=== PATIENT | female | born 1960 | race Caucasian/White ===

== ENCOUNTER 2018-01-13 18:05 | Emergency (ER) | payer BC ==
[2018-01-13] MEDS ORDERED: METOCLOPRAMIDE 5 MG/ML 2 ML VIAL IVP STA (18:07)
[2018-01-13] MEDS ORDERED: diphenhydrAMINE 50 MG/ML 1 ML VIAL IVP STA (18:07)
[2018-01-13] MEDS ORDERED: SODIUM CHLORIDE 0.9% 1,000 ML IV ONE (18:08)
[2018-01-13 18:31] LABS: Basophils # (A) 0.1 k/uL (0-0.2); Basophils % (A) 1 %; Eosinophils % (A) 0 %; HCT 41.2 % (34.0-46.0); HGB 13.8 gm/dL (11.4-16.0); Lymphocytes # (A) 1.5 k/uL (1.0-4.8); Lymphocytes % (A) 15 %; MCH 29.3 pg (25.0-35.0); MCHC 33.4 g/dL (31.0-37.0); MCV 87.7 fL (80.0-100.0); Mean Platelet Volume 8.2; Monocytes # (A) 0.5 k/uL (0-1.0); Monocytes % (A) 5 %; Neutrophils # (A) 7.7 k/uL (1.3-7.7); Neutrophils % (A) 77 %; Platelet Count 292 k/uL (150-450); RDW 12.9 % (11.5-15.5)
--- NOTE | 2018-01-13 18:33 | ED ---
Nausea/Vomiting/Diarrhea HPI - General Chief complaint: Nausea/Vomiting/Diarrhea Stated complaint: Near Syncope Time Seen by Provider: 01/13/18 18:07 Source: patient, family, EMS, RN notes reviewed Mode of arrival: EMS Limitations: no limitations - History of Present Illness Initial comments: This is a 57-year-old female who states she drank a caffeinated drink this morning that contain caffeine about 3 hours later started developing nausea. She denies develop vomiting. She states she had multiple left does nausea vomiting she feels lightheaded dizzy she states she started having contractures of her hands during this episode. She states it contain she was brought in by EMS and in spite of Zofran still feels very nauseated and felt like she had the vomiting. She's had this drink before but hasn't eaten afterwards she did not eat today. Also of note she did having hot flashes over last couple years as sleeping well this continues. MD complaint: nausea, vomiting - Related Data Allergies Allergy/AdvReac Type Severity Reaction Status Date / Time Sulfa (Sulfonamide Allergy Unknown Verified 01/13/18 18:10 Antibiotics) vancomycin Allergy Rash/Hives Verified 01/13/18 18:10 Review of Systems ROS Statement: Those systems with pertinent positive or pertinent negative responses have been documented in the HPI. ROS Other: All systems not noted in ROS Statement are negative. Past Medical History Past Medical History: Hypertension History of Any Multi-Drug Resistant Organisms: None Reported Past Surgical History: Appendectomy, Tonsillectomy Past Psychological History: No Psychological Hx Reported Smoking Status: Never smoker Past Alcohol Use History: None Reported Past Drug Use History: None Reported General Exam - General Exam Comments Initial Comments: This is a well-developed asthenic appearing female who is awake alert oriented 3 demonstrating nausea. Limitations: no limitations General appearance: alert, in no apparent distress Head exam: Present: atraumatic, normocephalic, normal inspection Eye exam: Present: normal appearance, PERRL, EOMI. Absent: scleral icterus, conjunctival injection, periorbital swelling ENT exam: Present: mucous membranes dry Neck exam: Present: normal inspection. Absent: tenderness, meningismus, lymphadenopathy Respiratory exam: Present: normal lung sounds bilaterally. Absent: respiratory distress, wheezes, rales, rhonchi, stridor Cardiovascular Exam: Present: regular rate, normal rhythm, normal heart sounds. Absent: systolic murmur, diastolic murmur, rubs, gallop, clicks GI/Abdominal exam: Present: soft, normal bowel sounds. Absent: distended, tenderness, guarding, rebound, rigid Extremities exam: Present: normal inspection, full ROM, normal capillary refill. Absent: tenderness, pedal edema, joint swelling, calf tenderness Back exam: Present: normal inspection Neurological exam: Present: alert, oriented X3, CN II-XII intact Psychiatric exam: Present: normal affect, normal mood Skin exam: Present: warm, dry, intact, normal color. Absent: rash Course Vital Signs 01/13/18 18:10 Temperature 96.8 F L Pulse Rate 88 Respiratory 16 Rate Blood Pressure 174/79 O2 Sat by Pulse 100 Oximetry Medical Decision Making - Medical Decision Making I did reevaluate patient several occasions she is feeling much improved at this time after IV hydration she will be discharged - Lab Data Result diagrams: 01/13/18 18:15 01/13/18 18:15 Lab Results 01/13/18 01/13/18 Range/Units 18:15 18:15 WBC 10.0 (3.8-10.6) k/uL RBC 4.70 (3.80-5.40) m/uL Hgb 13.8 (11.4-16.0) gm/dL Hct 41.2 (34.0-46.0) % MCV 87.7 (80.0-100.0) fL MCH 29.3 (25.0-35.0) pg MCHC 33.4 (31.0-37.0) g/dL RDW 12.9 (11.5-15.5) % Plt Count 292 (150-450) k/uL Neutrophils % 77 % Lymphocytes % 15 % Monocytes % 5 % Eosinophils % 0 % Basophils % 1 % Neutrophils # 7.7 (1.3-7.7) k/uL Lymphocytes # 1.5 (1.0-4.8) k/uL Monocytes # 0.5 (0-1.0) k/uL Eosinophils # 0.0 (0-0.7) k/uL Basophils # 0.1 (0-0.2) k/uL Sodium 139 (137-145) mmol/L Potassium 4.2 (3.5-5.1) mmol/L Chloride 105 (98-107) mmol/L Carbon Dioxide 18 L (22-30) mmol/L Anion Gap 16 mmol/L BUN 20 H (7-17) mg/dL Creatinine 0.70 (0.52-1.04) mg/dL Est GFR (CKD-EPI)AfAm >90 (>60 ml/min/1.73 sqM) Est GFR (CKD-EPI)NonAf >90 (>60 ml/min/1.73 sqM) Glucose 159 H (74-99) mg/dL Calcium 9.9 (8.4-10.2) mg/dL Magnesium 1.6 (1.6-2.3) mg/dL Total Bilirubin 0.7 (0.2-1.3) mg/dL AST 38 H (14-36) U/L ALT 45 (9-52) U/L Alkaline Phosphatase 103 (38-126) U/L Total Protein 7.3 (6.3-8.2) g/dL Albumin 4.6 (3.5-5.0) g/dL Amylase 67 (30-110) U/L Lipase 111 (23-300) U/L TSH 1.500 (0.465-4.680) mIU/L - EKG Data -: EKG Interpreted by Ne EKG shows normal: sinus rhythm (Sinus rhythm rate of 82. Interval 120 QRS duration 80 QT since QTC of 4:30/509, QT moderate voltage criteria for LVH artifact is present) Disposition Clinical Impression: Dehydration, Acute gastritis Disposition: HOME SELF-CARE Condition: Good Instructions: Acute Nausea and Vomiting (ED), Gastritis (ED), Dehydration (ED) Is patient prescribed a controlled substance at d/c from ED?: No Referrals: León Clements MD [Primary Care Provider] - 1-2 days
[2018-01-13 18:38] LABS: ALT 45 U/L (9-52); AST 38 U/L (14-36); Albumin 4.6 g/dL (3.5-5.0); Alkaline Phosphatase 103 U/L (38-126); Amylase 67 U/L (30-110); Anion Gap 16 mmol/L; Blood Urea Nitrogen 20 mg/dL (7-17); Calcium 9.9 mg/dL (8.4-10.2); Carbon Dioxide 18 mmol/L (22-30); Chloride 105 mmol/L (98-107); Glucose 159 mg/dL (74-99); Lipase 111 U/L (23-300); Magnesium 1.6 mg/dL (1.6-2.3); Potassium 4.2 mmol/L (3.5-5.1); Sodium 139 mmol/L (137-145); Total Bilirubin 0.7 mg/dL (0.2-1.3); Total Protein 7.3 g/dL (6.3-8.2)
[2018-01-13 20:01] VITALS: BP 140/73; PULSE 77; RESP 18; TEMP 98.6
== END 2018-01-13 20:07 | disposition home or self-care (01) ==
LOC: EC 18:05
DX: E86.0 Dehydration (principal); K29.00 Acute gastritis without bleeding; Z88.1 Allergy status to other antibiotic agents; Z88.2 Allergy status to sulfonamides; Z90.49 Acquired absence of other specified parts of digestive tract
CPT/HCPCS: 99284; 96374; 96375; 36415; 93005; 80053; 84443; 82150; 83690; 83735; 85025; J1200; J2765

== ENCOUNTER → 2020-02-14 | Outpatient (CLI) | payer BC ==
--- NOTE | 2020-02-17 09:09 | MM ---
Reason for exam: screening (asymptomatic). Last mammogram was performed 9 years and 6 months ago. History: Family history of breast cancer in sister at age 59. Took hormonal contraceptives for 14 years. Physical Findings: A clinical breast exam by your physician is recommended on an annual basis and results should be correlated with mammographic findings. MG Screening Mammo w CAD Bilateral CC and MLO view(s) were taken. Prior study comparison: July 30, 2010, bilateral digital screening mammo w/CAD. The breast tissue is heterogeneously dense. This may lower the sensitivity of mammography. There is no discrete abnormality. ASSESSMENT: Negative, BI-RAD 1 RECOMMENDATION: Routine screening mammogram of both breasts in 1 year.
== END | disposition home or self-care (01) ==
LOC: RADMAMWWP 07:17
PROVIDERS: ATTEND Obstetrics & Gynecology
DX: Z12.31 Encounter for screening mammogram for malignant neoplasm of breast (principal); Z80.3 Family history of malignant neoplasm of breast
CPT/HCPCS: 77067

== ENCOUNTER → 2020-05-05 | Outpatient (CLI) | payer BC ==
[2020-05-05 09:45] LABS: Basophils # (A) 0.1 k/uL (0-0.2); Basophils % (A) 1 %; Eosinophils # (A) 0.1 k/uL (0-0.7); Eosinophils % (A) 2 %; HCT 42.3 % (34.0-46.0); HGB 13.9 gm/dL (11.4-16.0); Lymphocytes # (A) 1.8 k/uL (1.0-4.8); Lymphocytes % (A) 33 %; MCHC 32.8 g/dL (31.0-37.0); MCV 91.4 fL (80.0-100.0); Monocytes # (A) 0.4 k/uL (0-1.0); Monocytes % (A) 8 %; Neutrophils # (A) 2.9 k/uL (1.3-7.7); Neutrophils % (A) 53 %; Platelet Count 278 k/uL (150-450); RBC 4.62 m/uL (3.80-5.40); RDW 12.6 % (11.5-15.5); WBC 5.5 k/uL (3.8-10.6)
[2020-05-05 10:00] LABS: African American GFR (CKD) >90 (>60 ml/min/1.73 sqM); Anion Gap 5 mmol/L; Blood Urea Nitrogen 26 mg/dL (7-17); Carbon Dioxide 30 mmol/L (22-30); Chloride 103 mmol/L (98-107); Glucose 103 mg/dL (74-99); Non-African American GFR(CKD) 80 (>60 ml/min/1.73 sqM); Potassium 3.8 mmol/L (3.5-5.1); Sodium 138 mmol/L (137-145)
== END | disposition home or self-care (01) ==
LOC: LABPAT 08:56
PROVIDERS: ATTEND Obstetrics & Gynecology
DX: Z01.818 Encounter for other preprocedural examination (principal); N81.4 Uterovaginal prolapse, unspecified
CPT/HCPCS: 36415; 80051; 82565; 82947; 84520; 85025; 87086; 93005

== ENCOUNTER 2020-05-12 06:10 | Observation (INO) | payer BC ==
[2020-05-07 13:37] VITALS: BMI 20.3
--- NOTE | 2020-05-07 14:35 | HP ---
HISTORY AND PHYSICAL This is a 59-year-old female 2, para 2-0-0-2, who has a longstanding history of grade 3 uterine prolapse. The patient presents today for vaginal hysterectomy and bilateral salpingo-oophorectomy, for recent diagnosis of positive bracket testing. Risks and benefits have been thoroughly discussed, second opinion offered and declined. The patient has received the ACOG pamphlet on this procedure. Because there is a fair amount of vaginal vault prolapse, without obvious cystocele or rectocele, because the patient is thin and has had vaginal deliveries in the past, I believe that the ovaries are easily obtained through the vaginal approach. The patient does consent for laparoscopic assistance if needed at the time of surgery. REVIEW OF SYSTEMS: Otherwise negative. PAST MEDICAL HISTORY: Significant for hypertension, heart murmur of benign etiology. PAST SURGICAL HISTORY: Appendectomy, bunionectomy, tendon release of the left wrist, and tonsillectomy. ALLERGIES: Include AMOXICILLIN, to which reports a rash. ASPIRIN, SULFA, to which she reports nosebleeds and VANCOMYCIN to which she reports a rash. FAMILY HISTORY: Significant for hypertension, breast cancer, heart disease and diabetes. REPRODUCTIVE HISTORY: Significant for 2 normal spontaneous vaginal deliveries of live born infant, 1995 and 1997. 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 She is has never been a smoker, denies alcohol or drug use. On examination, patient is 4 foot 9 inches, 111 pounds, blood pressure 132/78, pulse 82, BMI 24. HEENT: Examination reveals no thyromegaly, no cervical lymphadenopathy, midline trachea, good dentition. Breast exam reveals breasts to be bilaterally symmetric with no skin dimpling, nipple discharge, axillary adenopathy, or discernible lesions or masses. Chest is clear to auscultation in all lovett anteriorly and posteriorly. Cardiac exam reveals regular rate and rhythm with no murmur, click, or rub. Abdomen is soft and scaphoid, no organo- splenomegaly, no masses to deep palpation, active bowel sounds. No CVA tenderness. Extremities reveal no edema, good peripheral pulses. Normal reflexes bilaterally. On pelvic examination, the cervix is multiparous in appearance. Pap smear is up to date and within normal limits. There is a grade 3 uterine prolapse noted. Adnexa are negative, small and low to palpation. They are nontender. There is no obvious cystocele or rectocele noted on examination. IMPRESSION: Recent positive bracket testing, recommendation for oophorectomy. Uterine prolapse noted, grade 3, and symptomatic. No obvious cystocele or rectocele. PLAN: We will proceed with vaginal hysterectomy and bilateral salpingo-oophorectomy. This will likely involve the use of endo-loops. The options for abdominal approach or laparoscopic approach is discussed with the patient to which she is amenable. All questions answered thoroughly. Patient is aware of the risks of bleeding, infection, perforation or damage to the bowel, bladder, ureters, or indeed any pelvic or abdominal organs. Second opinion has been offered and declined. She understands the risks of anesthesia to include aspiration, nerve damage, or even remotely . We will proceed with surgery as scheduled on 05/12/2020. MMODL / IJN: [id number] /
[~2020-05-12 06:10] MED LIST: DEXAMETHASONE SOD PHOSPHATE 4 MG/ML 1 ML VIAL IV ONE; HYDROmorphone 0.5 MG/0.5 ML SYRINGE IVP PRN; LIDOCAINE 1% (10MG/ML) FOR IV START INTRADERMA PRN; ONDANSETRON 4 MG/2 ML VIAL IVP ONE; SCOPOLAMINE 1.5MG/72HR PATCH TRANSDERM ONE
[2020-05-12] MEDS: LACTATED RINGERS 1,000 ML IV SCH ×2 (06:51→11:40)
[2020-05-12] MEDS ORDERED: FAMOTIDINE 20 MG/2 ML VIAL IV ONE (07:08)
[2020-05-12] MEDS ORDERED: SCOPOLAMINE 1.5MG/72HR PATCH TRANSDERM ONE (07:08)
[2020-05-12] MEDS ORDERED: HYDROmorphone (PF) 1 MG/ML ONE (07:30)
[2020-05-12] MEDS ORDERED: diphenhydrAMINE 50 MG/ML 1 ML VIAL ONE (07:30)
[2020-05-12] MEDS ORDERED: PROPOFOL 10 MG/ML 20 ML VIAL IV ONE (07:30)
[2020-05-12] MEDS ORDERED: SUCCINYLCHOLINE CHLORIDE 100 MG/5 ML SYR IV ONE (07:30)
[2020-05-12] MEDS ORDERED: MIDAZOLAM 2 MG/2 ML VIAL ONE (07:30)
[2020-05-12] MEDS ORDERED: LIDOCAINE 1% INJ 10MG/ML (20 ML MDV) ONE (07:30)
[2020-05-12] MEDS ORDERED: KETOROLAC 15 MG/ML 1 ML VIAL ONE (07:30)
[2020-05-12] MEDS ORDERED: BACITRACIN OINT 1 EACH PACKET TOPICAL ONE (08:04)
[2020-05-12] MEDS ORDERED: LACTATED RINGERS 1,000 ML IV ONE (08:04)
[2020-05-12] MEDS ORDERED: ZOLPIDEM 5 MG TAB PO PRN (09:06)
[2020-05-12] MEDS ORDERED: KETOROLAC 15 MG/ML 1 ML VIAL IVP PRN (09:06)
[2020-05-12] MEDS ORDERED: SIMETHICONE 80 MG CHEWABLE PO PRN (09:06)
[2020-05-12] MEDS ORDERED: ONDANSETRON 4 MG/2 ML VIAL IVP PRN (09:06)
[2020-05-12] MEDS ORDERED: diphenhydrAMINE 50 MG/ML 1 ML VIAL IVP PRN (09:06)
--- NOTE | 2020-05-12 09:06 | P.OP ---
Date of Procedure: 05/12/20 Preoperative Diagnosis: Grade 3 uterine prolapse, positive BRCA2 testing, oncologist's recommendation to remove ovaries Postoperative Diagnosis: Same Procedure(s) Performed: Vaginal hysterectomy, bilateral salpingo-oophorectomy. Anesthesia: GETA Surgeon: Sejal Young Buggy Ladle Tender #1: Molly Brownlee Estimated Blood Loss (ml): 100 IV fluids (ml): 1,000 Urine output (ml): 200 Pathology: other (Cervix and uterus, bilateral tubes and ovaries sent under separate cover.) Condition: stable Disposition: PACU Description of Procedure: Patient is brought to the operating suite where a general anesthetic is admi nistered without difficulty per the anesthesia staff. Patient is placed in the dorsal lithotomy position. Antibiotics are given. The appropriate timeout is performed to assure proper patient and procedural identification. The cervix, vagina, and perineal bodies are all prepped and draped in usual sterile fashion. Bladder is drained for 200 mL of clear yellow urine. Weighted speculum was placed into the vagina. Anterior lip of the cervix is grasped with a double- tooth tenaculum. Pitressin solution is not injected as it is not available from the pharmacy, although ordered for the case yesterday. A resighini blade scalpel is used to incise the cervix circumferentially with a V positioning at 6:00. Sponge rolled finger is used to sweep the mucosa from the underlying fascial plane. Peritoneum is entered at 6:00 and suture tied with 2-0 Vicryl held with a hemostat. The large billed speculum is then placed into the peritoneal cavity. At all times the mucosa is swept well from the operative field to avoid bladder and/or ureteral injury. The right uterosacral cardinal ligament is identified, clamped cut and suture ligated. It is held laterally with a hemostat for vaginal cuff closure and support. Same procedure is carried out contralaterally. Uterine vasculature is identified, clamped cut and suture ligated. 2 additional pedicles are taken superior to the vessels. The uterus is then "walked out" posteriorly. The anterior peritoneal cavity is entered at 12:00. Kristen clamps are used across the final pedicles and the cervix and uterus are removed and sent to pathology. The pedicles are suture tied with 0 Vicryl suture, flashed, and retied for excellent hemostasis. A sponge stick is then used and the right tube and ovary are identified. An Endoloop of 0 Vicryl is placed around the right tube and ovary and cinched. Kristen clamp was then used across the pedicle in the right tube and ovary are removed and sent to pathology. The base is flat after tying securely with 0 Vicryl, and retied for excellent hemostasis. Sponge stick is again used now in the left tube and ovary are identified. They are high in the peritoneal cavity, grasped with a Piffard and brought into the surgical field. An Endoloop of 0 Vicryl is placed around the tube and ovary, cinched down for excellent hemostasis. Kristen clamp was then used across the specimen and the tube is removed. Ovary remains, and therefore a second Endoloop was placed higher to contain the left ovary. It is cinched for good hemostasis. The left ovary is then removed and sent with the specimen of left tube. The pedicle is again tied securely with 0 Vicryl suture with a Aureliano stitch, flashed and retied. Hemostasis is very good. Speculum is now changed to the shallow billed speculum. Peritoneum is brought around in a purse-string fashion to close the peritoneum. The uterosacral cardinal ligaments are brought across to incorporate the opposite ligament as well as vaginal mucosa. 3 additional [id number] sutures are used on the vaginal mucosa to close the vagina. Diego catheter is placed and noted to be draining clear urine. Vaginal packing is placed. All sponge needle and enhanc ement counts are correct. Patient is brought back to recovery room in very good condition with stable vital signs including blood pressure 110/61, pulse 58, 98% O2 saturation.
[2020-05-12] MEDS ORDERED: NALOXONE 0.4 MG/ML 1 ML VIAL IV PRN (09:08)
[2020-05-12] MEDS ORDERED: ACETAMINOPHEN TAB 325 MG TAB PO PRN (09:10)
[2020-05-12] MEDS ORDERED: HYDROmorphone PCA 10 MG/50 ML BAG IV PRN (09:56)
[2020-05-12] MEDS: METOCLOPRAMIDE 5 MG/ML 2 ML VIAL IVP PRN ×2 (13:34→17:34)
[2020-05-12] MEDS: IBUPROFEN 600 MG TAB PO PRN (18:18)
[2020-05-12 20:56] VITALS: RESP 16
[2020-05-13] MEDS: IBUPROFEN 600 MG TAB PO PRN ×2 (00:04→09:33)
--- NOTE | 2020-05-13 07:40 | P.DS ---
Providers Date of admission: 05/13/20 00:47 Expected date of discharge: 05/13/20 Attending physician: Sejal Young Primary care physician: Stated None Assessment: This is a 59-year-old white female who presented with symptomatic uterine prol apse and a recent diagnosis of positive BRCA2 gene testing. Recommendation from oncology was for oophorectomy. After thorough discussion elected to proceed with vaginal hysterectomy, bilateral salpingo-oophorectomy. Please see my admitting history and physical for details. Patient underwent a vaginal hysterectomy and bilateral salpingo-oophorectomy under my care yesterday. She did well intraoperatively. Vaginal packing was placed, Diego catheter to direct drainage. Patient had declined the option for spinal with Duramorph analgesia, and also declining the option for patient- controlled analgesia postoperatively. Please see my dictated operative note for details. This morning the patient is doing quite well. Diego catheter and vaginal packing were removed last night per her request. This morning she is passing flatus, tolerating regular food, ambulating, voiding without difficulties. She only has scant vaginal drainage. Vital signs are stable and she is afebrile. She did experience postoperative nausea which was controlled with Zofran and Reglan. She is judged to be in good condition for discharge home this morning. She is reminded no intercourse, tampons or douching. She will use [id number] ibuprofen products as needed for pain. She will call with any fevers shakes or chills, difficulties voiding, vaginal bleeding, with any pain not alleviated by [id number] products. Postoperative instructions have been reviewed in detail. She will follow-up with me in the office in 2 weeks. Patient Condition at Discharge: Good Plan - Discharge Summary Discharge Rx Participant: No New Discharge Prescriptions: No Action No Known Home Medications Discharge Medication List No Known Home Medications 05/07/20 [History] Follow up Appointment(s)/Referral(s): Sejal Young MD [STAFF PHYSICIAN] - 2 Weeks Discharge Disposition: HOME SELF-CARE
[2020-05-13 08:19] VITALS: BP 138/62; PULSE 57; TEMP 97.7
== END 2020-05-13 10:35 | disposition home or self-care (01) ==
LOC: OR 06:10 → 4FBP 08:55 → OR 05-13 03:02
PROVIDERS: ADMIT Obstetrics & Gynecology; ATTEND Obstetrics & Gynecology
DX: N81.4 Uterovaginal prolapse, unspecified (principal); D25.1 Intramural leiomyoma of uterus; N83.8 Other noninflammatory disorders of ovary, fallopian tube and broad ligament; R11.0 Nausea; Z15.01 Genetic susceptibility to malignant neoplasm of breast; I10 Essential (primary) hypertension; R01.1 Cardiac murmur, unspecified; Z88.0 Allergy status to penicillin; Z88.1 Allergy status to other antibiotic agents; Z88.2 Allergy status to sulfonamides; Z88.6 Allergy status to analgesic agent; Z88.5 Allergy status to narcotic agent; Z90.49 Acquired absence of other specified parts of digestive tract; Z98.890 Other specified postprocedural states; Z80.3 Family history of malignant neoplasm of breast; Z82.49 Family history of ischemic heart disease and other diseases of the circulatory system; Z83.3 Family history of diabetes mellitus
CPT/HCPCS: 88305; 88307; 58262; G0378; J2250; J1200; J1100; J2765; J0690; J2405; J2001; J1170 ×2; J1885; J0330; J2704; 86850; 86900; 86901

== ENCOUNTER → 2020-10-01 | Outpatient (CLI) | payer BC ==
--- NOTE | 2020-10-01 14:38 | MM ---
Reason for exam: additional evaluation requested from prior study. Last mammogram was performed 8 months ago. History: Patient is postmenopausal and had first child at age 35. Family history of breast cancer in sister at age 59. Took hormonal contraceptives for 14 years. Physical Findings: Nurse did not find any significant physical abnormalities on exam. MG 3D Diag Mammo W/Cad EBONY Bilateral CC and MLO view(s) were taken. Prior study comparison: February 14, 2020, bilateral MG screening mammo w CAD. July 30, 2010, bilateral digital screening mammo w/CAD. The breast tissue is heterogeneously dense. This may lower the sensitivity of mammography. No significant new findings when compared with previous films. These results were verbally communicated with the patient and result sheet given to the patient on 10/01/20. ASSESSMENT: Benign, BI-RAD 2 RECOMMENDATION: Follow-up diagnostic mammogram of both breasts in 1 year.
== END | disposition home or self-care (01) ==
LOC: RADMAMWWP 13:39
PROVIDERS: ATTEND Obstetrics & Gynecology
DX: Z15.01 Genetic susceptibility to malignant neoplasm of breast (principal); Z78.0 Asymptomatic menopausal state; Z80.3 Family history of malignant neoplasm of breast
CPT/HCPCS: 77062; 77066